=== PATIENT | female | born 1935 | race Caucasian/White ===

== ENCOUNTER 2016-08-05 01:59 | Inpatient (IN) | payer MEDICARE, OTHER ==
--- NOTE | ~2016-08-05 | HP ---
History And Physical [id number] [place]. [address] NAME: HALLIE SUBRAMANIAN : 39 STATUS : ADM IN [facility]#: [id number] AGE: 80 ADM/REG DATE : 08/05/16 MR#: [id number] REPORT SERV DATE: 08/05/16 DICTATED BY: COLBY CARLSON DATE: 08/05/16 REPORT STATUS : Draft TRANSCRIBED BY: MODL DATE: 08/05/16 DATE OF ADMISSION: 08/05/2016 POINT OF ENTRY: Transfer from [facility] Emergency Department. PRIMARY RAW SAMPLER: Dr. Constantin Suarez. PRIMARY ORTHOPEDIC SURGEON: Dr. Monroe. CHIEF COMPLAINT: Fall and hip pain. HISTORY OF PRESENT ILLNESS: Ms. Subramanian is a 80-year-old female with a history of hypertension, hyperlipidemia, coronary artery disease, stroke, and osteoarthritis, who presents to the emergency department today with reports of a mechanical fall with resulting right-sided hip pain. The patient states that after latter-day on Friday, she went to go visit her sister, she climbed three steps of her sisters porch and was reaching for the door when she all of a sudden felt dizzy and fell down on the steps striking her right hip. She denies any loss of conscious, denies any chest pain, denies any associated shortness of breath, chest pain, palpitations, nausea, vomiting, related to the dizziness. 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 Initial evaluation at [facility] Emergency Department notable for a CT scan of the right hip with minimally displaced fracture of the right acetabulum as well as a 5-mm displaced fracture of the inferior pubic rami. She was subsequently transferred to [facility] as she is a patient of Dr. Monroe. She denies any recent fevers, night sweats, chills, chest pain, palpitations, shortness of breath, abdominal pain, nausea, vomiting, diarrhea, constipation, dysuria, lower extremity edema, melena, hematochezia, or hemoptysis. The patient states that she exercises on a daily basis, walks about a mile on a local track and is not limited in her exercise routine by either shortness of breath or chest pain. REVIEW OF SYSTEMS: Comprehensive review of systems otherwise negative, unless listed in history of present illness. PREVIOUS MEDICAL HISTORY: 1. Hypertension. 2. Hyperlipidemia. 3. Gastroesophageal reflux disease. 4. Osteoarthritis. 5. Depression. 6. Hiatal hernia. 7. Anxiety. History And Physical [address] [address] NAME: HALLIE SUBRAMANIAN : 37 STATUS : ADM IN PAT#: [id number] AGE: 80 ADM/REG DATE : 08/05/16 MR#: [id number] REPORT SERV DATE: 08/05/16 DICTATED BY: COLBY CARLSON DATE: 08/05/16 REPORT STATUS : Draft TRANSCRIBED BY: WONG DATE: 08/05/16 8. Dementia. 9. Coronary artery disease with prior PCI in 2012. 10.History of stroke with resulting left vision blindness. SURGICAL HISTORY: 1. Right total knee. 2. Appendectomy. 3. Cholecystectomy. 4. Foot surgery. 5. Carpal tunnel. 6. Cataracts. ALLERGIES: MULTIPLE. HOME MEDICATIONS: Pending at the time of dictation. SOCIAL HISTORY: Denies any tobacco, alcohol, or illicits. Lives alone. As mentioned previously, has fairly regular daily exercise routine. FAMILY MEDICAL HISTORY: Mother with melanoma. Father with coronary artery disease. Siblings with DVT and COPD. LABORATORIES AND IMAGING: All obtained from transfer records from [facility] Emergency Department: 1. White count is 6.1, hemoglobin is 11.6, hematocrit is 35.0, platelet count is 169. INR 1.1. 2. Sodium is 144, potassium 4.0, chloride 105, carbon dioxide 29, BUN 27, creatinine 1.3, glucose is 101, calcium is 9.0, protein is 7.0, albumin is 3.7, bilirubin is 0.5, ALT is 23, AST 28, alkaline phosphatase is 82. 3. Troponin less than 0.02. 4. EKG per my review shows normal sinus rhythm with first-degree AV block. 5. CT scan of the right hip and lower extremity shows a minimally displaced fracture of the anterior column of the acetabulum as well as a 5 mm displaced fracture of the right inferior pubic rami. PHYSICAL EXAMINATION: VITAL SIGNS: Temperature is 98.1 degrees Fahrenheit, pulse is 70, respirations 18, saturating 97% on room air, and blood pressure is 181/74. GENERAL: The patient is awake, alert, in no acute distress, resting comfortably in bed. She is a well-developed, well-nourished, elderly female. HEENT: Atraumatic and normocephalic. Moist mucous membranes. Pupils are equal, round, reactive to light and accommodation. Extraocular eye movements intact. No scleral icterus. NECK: No jugular venous distention. No carotid bruits. CARDIAC: Regular rate and rhythm. No murmurs or gallops. Normal S1 and S2. LUNGS: Clear to auscultation bilaterally. No wheezes, rhonchi, or crackles. ABDOMEN: Soft, nontender, nondistended. Good bowel sounds. No rebound, guarding, or rigidity. History And Physical [address] [address] NAME: HALLIE SUBRAMANIAN : 39 STATUS : ADM IN [facility]#: [id number] AGE: 80 ADM/REG DATE : 08/05/16 MR#: [id number] REPORT SERV DATE: 08/05/16 DICTATED BY: COLBY CARLSON DATE: 08/05/16 REPORT STATUS : Draft TRANSCRIBED BY: WONG DATE: 08/05/16 EXTREMITIES: Warm and well perfused. No cyanosis, clubbing, or edema. Right lower extremity is neurovascularly intact distally. SKIN: Warm and dry. PSYCH: Affect appropriate. NEURO: Alert and oriented x3. Cranial nerves II through XII grossly intact. Speech is normal. Gait not assessed. ASSESSMENT: Ms. Subramanian is a 80-year-old female, who suffered mechanical fall resulting right acetabulum and inferior pubic rami fracture. PROBLEM LIST: 1. Right acetabular and inferior pubic rami fracture. 2. Fall. 3. Hypertension. 4. History of coronary artery disease. 5. History of stroke. PLAN: 1. Right acetabular and inferior pubic rami fracture. We will consult the patient's primary orthopedic surgeon, Dr. Monroe, for management. We will keep the patient nothing by mouth in an event that surgical management may be indicated. The patient has received all her appropriate preoperative evaluation, except for urinalysis. Given her history of coronary artery disease, we will recheck EKG as well as cardiac troponin and a chest x-ray, but the patient states that she is fairly active and exercises on a regular basis without any limitation by chest pain or shortness of breath. 2. Fall. States she gets dizzy quite often after her stroke and leaving her blind in one eye. We will continue to monitor, may need physical therapy evaluation after Dr. Monroe's evaluation. 3. Hypertension. Continue the patient's home medications once confirmed. IV hydralazine p.r.n. 4. History of coronary artery disease. The patient denies any chest pain, again has a fairly active exercise routine. Checking chest x-ray, EKG as well as cardiac enzymes. 5. DVT prophylaxis. Lovenox subcutaneously. CODE STATUS: The patient wishes to be full code. MACY/WONG Colby Carlson MD / [id number] CC: Karin Gutiérrez M.D. History And Physical [address] [address] NAME: HALLIE SUBRAMANIAN : 39 STATUS : ADM IN PAT#: [id number] AGE: 80 ADM/REG DATE : 08/05/16 MR#: [id number] REPORT SERV DATE: 08/05/16 DICTATED BY: COLBY CARLSON DATE: 08/05/16 REPORT STATUS : Draft TRANSCRIBED BY: WONG DATE: 08/05/16 Francisco Jaffe M.D.
--- NOTE | ~2016-08-05 | DS ---
Discharge Summary [address] [place]. [address] NAME: HALLIE SUBRAMANIAN : 39 STATUS : DIS IN PAT#: [id number] AGE: 80 ADM/REG DATE : 08/05/16 MR#: [id number] REPORT SERV DATE: 08/10/16 DICTATED BY: IVAN ROCHE DATE: 08/09/16 REPORT STATUS : Draft TRANSCRIBED BY: MODL DATE: 08/09/16 ADMISSION DATE: 08/05/2016 DISCHARGE DATE: 08/09/2016 The patient was admitted to the Hospitalist Service. CONSULTANTS: Dashawn Monroe M.D., Orthopedics. DISCHARGE DIAGNOSES: 1. Right acetabulum and pubic root/pelvis fracture, status post fall. 2. Hypertension. 3. Acute kidney injury. 4. Dementia. 5. Depression. 6. Urinary tract infection. IMAGING AND DIAGNOSTICS: 1. 08/05/2016, portable chest x-ray revealed no acute cardiopulmonary abnormality. Lungs are clear. 2. 08/05/2016, two-view hip and pelvis revealed no evidence of acute pelvis or right hip abnormality. 3. A CT scan of right lower extremity and hip without contrast. A copy of the report from [facility] shows minimally displaced fracture, anterior column of the right acetabulum, 5 mm displaced fracture of the right inferior pubic ramus. LABORATORY STUDIES: 1. Discharge basic metabolic panel today on 08/09/2016, revealed a sodium of 142, potassium 4.7, chloride 107, CO2 28, BUN 22, creatinine 1.23, GFR 42, glucose 108, and calcium 9.4. 2. CBC on 08/09/2016, revealed a white count of 5.4, hemoglobin 10.9, and hematocrit 32.4. 3. Urinalysis on 08/08/2016, clean catch, appearance cloudy, 100 mg/dL of protein, large blood, large leukocyte esterase. Microscopic revealed greater than 182 red blood cells per high-power field and greater than 182 white blood cells per high-power field, many white blood cell clumped. Reflect culture urine is pending. Preliminary culture showed colony count of greater than 100,000 per mL of urine gram-negative bacilli to be identified. HISTORY OF PRESENT ILLNESS: For complete history, please refer to admission H and P by Dr. Oj Rodriges. Ms. Subramanian is a 80-year-old female, who was transferred to our hospital from the emergency room at [facility] after a fall resulting in right sided hip pain. CT scan, at [facility], of the right hip and lower extremity again revealed a minimally displaced fracture of the anterior column of the right acetabulum and a 5 mm displaced fracture of the right inferior pubic ramus. She was admitted to the Hospitalist Service for further evaluation and treatment. Consultation was placed to Dr. Dashawn Monroe. The patient was admitted to a telemetry bed. She was made n.p.o. after midnight. Lab work was ordered and she was provided with normal saline at 100 mL/h. She did have Discharge Summary [address] [place]. [address] NAME: HALLIE SUBRAMANIAN : 39 STATUS : DIS IN PAT#: [id number] AGE: 80 ADM/REG DATE : 08/05/16 MR#: [id number] REPORT SERV DATE: 08/10/16 DICTATED BY: IVAN ROCHE DATE: 08/09/16 REPORT STATUS : Draft TRANSCRIBED BY: WONG DATE: 08/09/16 initial EKG on 08/05/2016, which revealed sinus rhythm with first-degree AV block. She was provided with oral as well as IV pain medications p.r.n. and p.r.n. IV hydralazine. I initially saw the patient on 08/05/2016. She was complaining of chest pain. She did receive one sublingual nitroglycerin, and an EKG was complete. There were no changes from the previous EKG. She had a serial cardiac biomarkers ordered which revealed troponins of less than 0.02 x3. She felt like she was lying in one spot, trying not to move secondary to pain, which caused her to experience this chest pain. She was seen in consultation by Dr. Monroe who recommended no surgical intervention and PT evaluate and treat. On 08/06/2016, her pain was controlled and she was getting up in the chair in no acute distress. She had a Maldonado catheter placed at the [facility] and orders were written for discontinuation of the catheter. On 08/07/2016, she was in no acute distress and per Ortho, she could be weightbearing as tolerated. Case management was arranging inpatient rehab as the patient lives alone. She was requesting to go to [facility], [place]. On the morning of 08/08/2016, Ms. Subramanian had nausea and vomiting. Her Maldonado catheter had been discontinued the day before and she was now experiencing some hematuria. Urinalysis with reflex culture was ordered. It did come back showing a urinary tract infection and initially an order was placed for Rocephin 1 g IV now and daily; however, pharmacy notified that the patient had a serious life-threatening reaction to penicillin. Therefore, Rocephin was discontinued. The patient never did receive a dose and Levaquin 750 mg p.o. now in q.48 hours for a total of 3 dose was written. On 08/09/2016, Ms. Subramanian was sitting up in her chair in no acute distress. Her pain was controlled. Her hematuria has resolved. Her vital signs were stable. Blood pressure was 126/59, heart rate in 60s, and she was afebrile, and no longer having any nausea and vomiting. Eating and drinking without difficulty. Her lungs were clear. Heart regular rate and rhythm. No murmurs, rubs, or gallops. Abdomen is soft, nontender. Active bowel sounds in all four quadrants. Therefore, it was felt she was stable for transfer to the snf on this date. So, at early afternoon of 08/09/2016, she was transferred to [facility] in stable condition. DISCHARGE INSTRUCTIONS: 1. Diet as tolerated. 2. Activity as tolerated with physical therapy and occupational therapy evaluation and treat. DISCHARGE MEDICATIONS: 1. Lipitor 40 mg p.o. daily. 2. Aricept 10 mg p.o. daily. 3. Protonix 40 mg p.o. daily. 4. Zoloft 100 mg p.o. daily. 5. Tylenol 650 mg p.o. or p.r. q.4 hours p.r.n. 6. Tramadol 50 mg p.o. t.i.d. p.r.n. moderate pain. 7. Nitroglycerin 0.4 mg sublingual p.r.n. chest pain. 8. Zofran 4 mg p.o. q.4 hours p.r.n. 9. Percocet 5/325 mg one p.o. q.4 h. p.r.n. severe pain. 10.Amlodipine 5 mg p.o. daily. 11.Levaquin 750 mg p.o. q.48 hours. Her second dose is to be given on 08/10/2016, and then her third and final dose to be given on 08/12/2016 and then discontinue. Discharge Summary [address] [place]. [address] NAME: HALLIE SUBRAMANIAN : 39 STATUS : DIS IN PAT#: [id number] AGE: 80 ADM/REG DATE : 08/05/16 MR#: [id number] REPORT SERV DATE: 08/10/16 DICTATED BY: IVAN ROCHE DATE: 08/09/16 REPORT STATUS : Draft TRANSCRIBED BY: WONG DATE: 08/09/16 OTHER DISCHARGE INSTRUCTIONS: Ms. Subramanian was instructed not to resume her lisinopril/HCTZ with her elevated creatinine level. In addition, she will have blood drawn, a basic metabolic panel on Friday08/12/2016, to follow up on her creatinine. She will also follow up with her primary care provider, Dr. Steve Mahajan after discharge from rehabilitation. BOOGIE/WONG Basia Roche, [employer] / [id number] CC: Francisco Milian
--- NOTE | ~2016-08-05 | HP ---
History And Physical [address] [place]. [address] NAME: HALLIE SUBRAMANIAN : 39 STATUS : ADM IN [facility]#: [id number] AGE: 80 ADM/REG DATE : 08/05/16 MR#: [id number] REPORT SERV DATE: 08/06/16 DICTATED BY: PEMA MONROE DATE: 08/06/16 REPORT STATUS : Draft TRANSCRIBED BY: MODL DATE: 08/06/16 DATE OF ADMISSION: 08/05/2016 CHIEF COMPLAINT: Right hip and groin pain. HISTORY: This is a 80-year-old female well known to me, who fell a couple of nights ago, and landed on her right hip and fractured. She was transferred here from another hospital in my absence, while I was away this weakened. Seen her today. She denies any pain or injury elsewhere. She has decreased ambulation due to pain in her hip and groin area. ALLERGIES: PENICILLIN, PROPOXYPHENE, AND CELEBREX. MEDICATIONS: See chart. PAST MEDICAL HISTORY: History of CVA/TIA, blind in her left eye, coronary artery disease, hypertension, hypercholesterolemia, diverticulosis, GERD, hiatal hernia, and depression. PAST SURGICAL HISTORY: Cholecystectomy in the s, bilateral carpal tunnels, right oophorectomy, rectovaginal repair in , right benign lumpectomy in . SOCIAL HISTORY: No cigarettes, alcohol, or illicit drug use. FAMILY HISTORY: No anesthetic complications. REVIEW OF SYSTEMS: No recent illnesses, otherwise negative. PHYSICAL EXAMINATION: GENERAL: She is alert and oriented x3, in no apparent distress. HEENT: Atraumatic, normocephalic. NECK: Supple. CHEST: Symmetric, nontender. LUNGS: Per Medicine evaluation. CV: Regular. ABDOMEN: Soft. No mass. EXTREMITIES: Both upper extremities, both lower extremities without acute trauma except for decreased range of motion and pain in right hip. NEUROVASCULAR: Intact. SKIN: Benign. Compartment supple. IMAGING: Review of x-rays and CT scan revealed a stable pelvis fracture. Her "acetabular fracture" actually looks more like a pubic root fracture, which is stable. ASSESSMENT: Stable pelvis fracture. PLAN: Weightbearing as tolerated. Progressive ambulation. Antithrombotic treatment as History And Physical [address] [place]. [address] NAME: HALLIE SUBRAMANIAN : 39 STATUS : ADM IN PAT#: [id number] AGE: 80 ADM/REG DATE : 08/05/16 MR#: [id number] REPORT SERV DATE: 08/06/16 DICTATED BY: PEMA MONROE DATE: 08/06/16 REPORT STATUS : Draft TRANSCRIBED BY: MODL DATE: 08/06/16 recommended by her admitting physician, analgesia, and we will follow up with her as needed. WTB/MODL Cami Monroe M.D. / [id number] CC: Francisco Ngo
[~2016-08-05 01:59] MED LIST: ARICEPT10 PO; ASAB PO; C5; LIPITOR20 PO; NORCO1 TA1 PO; NORV5 PO; PCET PO; PROTONIX PO; PROZAC40 MG PO; VITAMIN D400 UNI1 PO; ZESTORETIC PO; ZOL100 PO
[2016-08-05 06:40] LABS: BASOPHILS 0.1 %; BASOPHILS ABSOLUTE 0.01 10/3/uL (0.0-0.16); EOSINOPHILS 1.6 %; EOSINOPHILS ABSOLUTE 0.11 10/3/uL (0.0-0.53); IMMATURE GRANULOCYTES 0.4 %; IMMATURE GRANULOCYTES ABSOLUTE 0.03 10/3/uL (0.0-0.11); LYMPHOCYTES 17.8 %; MEAN CORPUS HGB CONC 33.5 g/dL (32.0-36.0); MEAN CORPUSCULAR HEMOGLOB 30.6 pg (26.0-34.0); MEAN CORPUSCULAR VOLUME 91.2 fL (80-100); MEAN PLATELET VOLUME 10.1 fL (9.2-13.0); MONOCYTES 5.3 %; MONOCYTES ABSOLUTE 0.36 10/3/uL (0.21-1.20); NEUTROPHILS 74.8 %; NEUTROPHILS ABSOLUTE 5.02 10/3/uL (2.02-8.40); PLATELET COUNT 157 10/3/uL (150-400); RBC DISTRIBUTION WIDTH 14.8 % (12.0-16.0); RED CELL COUNT 3.53 10/6/uL (4.0-5.6); WHITE BLOOD CELLS 6.7 10/3/uL (4.5-10.5)
[2016-08-05 06:43] LABS: HEMATOCRIT 32.2 % (36.0-48.0); HEMOGLOBIN 10.8 g/dL (12.0-16.0); MANUAL DIFF NO %
[2016-08-05 06:58] LABS: BUN (BLOOD UREA NITROGEN) 25 MG/DL (6-23); CHLORIDE, SERUM 107 MMOL/L (96-112); CO2 (CARBON DIOXIDE) 29 MMOL/L (24-34); CREATININE 1.27 MG/DL (0.55-1.02); GFR AFRICAN AMERICAN 47 ML/MIN (>=60); GFR NON AFRICAN AMERICAN 40 ML/MIN (>=60); GLUCOSE, SERUM 112 MG/DL (60-99); POTASSIUM, SERUM 4.3 MMOL/L (3.5-5.3); SODIUM, SERUM 142 MMOL/L (135-148); TROPONIN I <0.02 NG/ML (<0.05)
[2016-08-05 07:58] LABS: ASCORBIC ACID (UR NOT ORDER) NEG (NEG); BILIRUBIN, URINE NEGATIVE (NEG); KETONE, URINE NEGATIVE (NEG); LEUKOCYTE ESTERASE(NOT OR NEG (NEG); WBC (NOT ORDERED) (RFLEX) 1 (0-5)
[2016-08-05] MEDS ORDERED: PRINZIDE1 TA1 PO (11:30)
[2016-08-05] MEDS ORDERED: LIPITOR40 PO (11:31)
[2016-08-05] MEDS ORDERED: PROTONIX PO (11:31)
[2016-08-05] MEDS ORDERED: ULTRAM50 PO (11:31)
[2016-08-05] MEDS ORDERED: ZOL100 PO (11:31)
[2016-08-05] MEDS ORDERED: ARICEPT10 PO (11:31)
[2016-08-06 06:36] LABS: BASOPHILS 0.6 %; BASOPHILS ABSOLUTE 0.03 10/3/uL (0.0-0.16); EOSINOPHILS 7.3 %; EOSINOPHILS ABSOLUTE 0.36 10/3/uL (0.0-0.53); HEMATOCRIT 31.2 % (36.0-48.0); HEMOGLOBIN 10.5 g/dL (12.0-16.0); IMMATURE GRANULOCYTES 0.4 %; IMMATURE GRANULOCYTES ABSOLUTE 0.02 10/3/uL (0.0-0.11); LYMPHOCYTES 23.8 %; LYMPHOCYTES ABSOLUTE 1.17 10/3/uL (0.67-4.30); MEAN CORPUS HGB CONC 33.7 g/dL (32.0-36.0); MEAN CORPUSCULAR HEMOGLOB 31.2 pg (26.0-34.0); MEAN CORPUSCULAR VOLUME 92.6 fL (80-100); MEAN PLATELET VOLUME 9.7 fL (9.2-13.0); MONOCYTES 7.5 %; MONOCYTES ABSOLUTE 0.37 10/3/uL (0.21-1.20); NEUTROPHILS 60.4 %; NEUTROPHILS ABSOLUTE 2.96 10/3/uL (2.02-8.40); PLATELET COUNT 135 10/3/uL (150-400); RBC DISTRIBUTION WIDTH 14.6 % (12.0-16.0); RED CELL COUNT 3.37 10/6/uL (4.0-5.6); WHITE BLOOD CELLS 4.9 10/3/uL (4.5-10.5)
[2016-08-06 06:41] LABS: CALCIUM, SERUM 8.7 MG/DL (8.5-10.4); CHLORIDE, SERUM 109 MMOL/L (96-112); CO2 (CARBON DIOXIDE) 28 MMOL/L (24-34); CREATININE 1.07 MG/DL (0.55-1.02); GFR AFRICAN AMERICAN 58 ML/MIN (>=60); GFR NON AFRICAN AMERICAN 50 ML/MIN (>=60); GLUCOSE, SERUM 102 MG/DL (60-99); POTASSIUM, SERUM 3.7 MMOL/L (3.5-5.3); SODIUM, SERUM 143 MMOL/L (135-148)
[2016-08-06 06:43] LABS: MANUAL DIFF NO %
[2016-08-06 06:44] LABS: BUN (BLOOD UREA NITROGEN) 20 MG/DL (6-23)
[2016-08-07 05:27] LABS: BUN (BLOOD UREA NITROGEN) 17 MG/DL (6-23); CALCIUM, SERUM 8.8 MG/DL (8.5-10.4); CHLORIDE, SERUM 109 MMOL/L (96-112); CREATININE 1.06 MG/DL (0.55-1.02); GFR AFRICAN AMERICAN 58 ML/MIN (>=60); GFR NON AFRICAN AMERICAN 50 ML/MIN (>=60); GLUCOSE, SERUM 98 MG/DL (60-99); POTASSIUM, SERUM 3.7 MMOL/L (3.5-5.3); SODIUM, SERUM 144 MMOL/L (135-148)
[2016-08-07 05:39] LABS: CO2 (CARBON DIOXIDE) 23 MMOL/L (24-34)
[2016-08-07 06:00] LABS: BASOPHILS 0.4 %; BASOPHILS ABSOLUTE 0.02 10/3/uL (0.0-0.16); EOSINOPHILS 7.4 %; EOSINOPHILS ABSOLUTE 0.37 10/3/uL (0.0-0.53); HEMATOCRIT 31.2 % (36.0-48.0); HEMOGLOBIN 10.3 g/dL (12.0-16.0); IMMATURE GRANULOCYTES 0.2 %; IMMATURE GRANULOCYTES ABSOLUTE 0.01 10/3/uL (0.0-0.11); LYMPHOCYTES 18.3 %; LYMPHOCYTES ABSOLUTE 0.92 10/3/uL (0.67-4.30); MEAN CORPUSCULAR HEMOGLOB 30.4 pg (26.0-34.0); MONOCYTES 8.6 %; MONOCYTES ABSOLUTE 0.43 10/3/uL (0.21-1.20); NEUTROPHILS 65.1 %; NEUTROPHILS ABSOLUTE 3.27 10/3/uL (2.02-8.40); PLATELET COUNT 136 10/3/uL (150-400); RBC DISTRIBUTION WIDTH 14.5 % (12.0-16.0); RED CELL COUNT 3.39 10/6/uL (4.0-5.6)
[2016-08-07 06:02] LABS: MANUAL DIFF NO %
[2016-08-08 12:08] LABS: BASOPHILS 0.4 %; BASOPHILS ABSOLUTE 0.03 10/3/uL (0.0-0.16); EOSINOPHILS 2.7 %; EOSINOPHILS ABSOLUTE 0.23 10/3/uL (0.0-0.53); HEMOGLOBIN 11.9 g/dL (12.0-16.0); IMMATURE GRANULOCYTES 0.4 %; IMMATURE GRANULOCYTES ABSOLUTE 0.03 10/3/uL (0.0-0.11); LYMPHOCYTES ABSOLUTE 1.37 10/3/uL (0.67-4.30); MEAN CORPUS HGB CONC 33.4 g/dL (32.0-36.0); MEAN CORPUSCULAR HEMOGLOB 30.3 pg (26.0-34.0); MEAN CORPUSCULAR VOLUME 90.6 fL (80-100); MEAN PLATELET VOLUME 9.7 fL (9.2-13.0); MONOCYTES 5.4 %; MONOCYTES ABSOLUTE 0.46 10/3/uL (0.21-1.20); NEUTROPHILS 75.1 %; NEUTROPHILS ABSOLUTE 6.44 10/3/uL (2.02-8.40); PLATELET COUNT 157 10/3/uL (150-400); RBC DISTRIBUTION WIDTH 14.5 % (12.0-16.0); RED CELL COUNT 3.93 10/6/uL (4.0-5.6)
[2016-08-08 12:10] LABS: HEMATOCRIT 35.6 % (36.0-48.0); WHITE BLOOD CELLS 8.6 10/3/uL (4.5-10.5)
[2016-08-08 12:11] LABS: MANUAL DIFF NO %
[2016-08-08 12:20] LABS: BUN (BLOOD UREA NITROGEN) 16 MG/DL (6-23); CHLORIDE, SERUM 107 MMOL/L (96-112); CO2 (CARBON DIOXIDE) 25 MMOL/L (24-34); CREATININE 1.13 MG/DL (0.55-1.02); GFR AFRICAN AMERICAN 54 ML/MIN (>=60); GFR NON AFRICAN AMERICAN 47 ML/MIN (>=60); POTASSIUM, SERUM 3.8 MMOL/L (3.5-5.3); SODIUM, SERUM 142 MMOL/L (135-148)
[2016-08-08 12:21] LABS: GLUCOSE, SERUM 120 MG/DL (60-99)
[2016-08-08 16:57] LABS: ASCORBIC ACID (UR NOT ORDER) NEG (NEG); BILIRUBIN, URINE NEGATIVE (NEG); KETONE, URINE NEGATIVE (NEG); LEUKOCYTE ESTERASE(NOT OR LARGE (NEG)
[2016-08-08 16:58] LABS: WBC (NOT ORDERED) (RFLEX) > 182 (0-5)
[2016-08-09 06:38] LABS: BASOPHILS 0.4 %; BASOPHILS ABSOLUTE 0.02 10/3/uL (0.0-0.16); CALCIUM, SERUM 9.4 MG/DL (8.5-10.4); CHLORIDE, SERUM 107 MMOL/L (96-112); CO2 (CARBON DIOXIDE) 28 MMOL/L (24-34); CREATININE 1.23 MG/DL (0.55-1.02); EOSINOPHILS 6.1 %; EOSINOPHILS ABSOLUTE 0.33 10/3/uL (0.0-0.53); GFR AFRICAN AMERICAN 49 ML/MIN (>=60); GFR NON AFRICAN AMERICAN 42 ML/MIN (>=60); GLUCOSE, SERUM 108 MG/DL (60-99); HEMATOCRIT 32.4 % (36.0-48.0); HEMOGLOBIN 10.9 g/dL (12.0-16.0); IMMATURE GRANULOCYTES 0.4 %; IMMATURE GRANULOCYTES ABSOLUTE 0.02 10/3/uL (0.0-0.11); LYMPHOCYTES 11.1 %; MEAN CORPUS HGB CONC 33.6 g/dL (32.0-36.0); MEAN CORPUSCULAR HEMOGLOB 30.4 pg (26.0-34.0); MEAN CORPUSCULAR VOLUME 90.3 fL (80-100); MEAN PLATELET VOLUME 9.4 fL (9.2-13.0); MONOCYTES 6.8 %; MONOCYTES ABSOLUTE 0.37 10/3/uL (0.21-1.20); NEUTROPHILS 75.2 %; NEUTROPHILS ABSOLUTE 4.07 10/3/uL (2.02-8.40); PLATELET COUNT 150 10/3/uL (150-400); RBC DISTRIBUTION WIDTH 14.6 % (12.0-16.0); RED CELL COUNT 3.59 10/6/uL (4.0-5.6); SODIUM, SERUM 142 MMOL/L (135-148); WHITE BLOOD CELLS 5.4 10/3/uL (4.5-10.5)
[2016-08-09 06:39] LABS: MANUAL DIFF NO %
[2016-08-09 06:40] LABS: BUN (BLOOD UREA NITROGEN) 22 MG/DL (6-23); POTASSIUM, SERUM 4.7 MMOL/L (3.5-5.3)
== END 2016-08-09 12:04 | DRG 535 ==
LOC: 2SO 01:59
PROVIDERS: Internal Medicine; Nurse Practitioner
DX: S32.591A Other specified fracture of right pubis, initial encounter for closed fracture (principal); S32.431A Displaced fracture of anterior column [iliopubic] of right acetabulum, initial encounter for closed fracture; N17.9 Acute kidney failure, unspecified; N39.0 Urinary tract infection, site not specified; F03.90 Unspecified dementia, unspecified severity, without behavioral disturbance, psychotic disturbance, mood disturbance, and anxiety; I10 Essential (primary) hypertension; E78.5 Hyperlipidemia, unspecified; I25.10 Atherosclerotic heart disease of native coronary artery without angina pectoris; M19.90 Unspecified osteoarthritis, unspecified site; W10.8XXA Fall (on) (from) other stairs and steps, initial encounter; K21.9 Gastro-esophageal reflux disease without esophagitis; K44.9 Diaphragmatic hernia without obstruction or gangrene; F32.9 Major depressive disorder, single episode, unspecified; F41.9 Anxiety disorder, unspecified; H54.42 Blindness, left eye, normal vision right eye; Z96.651 Presence of right artificial knee joint; I44.0 Atrioventricular block, first degree; Z95.5 Presence of coronary angioplasty implant and graft; Z86.73 Personal history of transient ischemic attack (TIA), and cerebral infarction without residual deficits; Y92.008 Other place in unspecified non-institutional (private) residence as the place of occurrence of the external cause; Z85.820 Personal history of malignant melanoma of skin; Z85.89 Personal history of malignant neoplasm of other organs and systems; Z88.0 Allergy status to penicillin; Z88.8 Allergy status to other drugs, medicaments and biological substances; Z88.6 Allergy status to analgesic agent; Z98.890 Other specified postprocedural states
CPT/HCPCS: 71010; 73502-RT; 80048; 81001; 83735; 84484; 85025; 87077; 87086; 87186; 93005; 97110-GP; 97116-GP; 97161-GP; A9270-GY; G8978-CK-GP; G8979-CI-GP; J0360; J1170